=== PATIENT | female | born 2000 | race Caucasian/White ===

== ENCOUNTER 2019-08-26 10:12 | Emergency (ER) | payer MEDICAID, OTHER ==
[~2019-08-26] VITALS: Ht 175.3 cm; Wt 84.1 kg
[~2019-08-26 10:12] MED LIST: NOCURR
[2019-08-26] MEDS ORDERED: [UNRECOGNIZED DRUG - OTHER] PO (10:19)
[2019-08-26 12:00] VITALS: BP 119/70
[2019-08-26] MEDS ORDERED: LEVO5TAB29 PO (12:21)
[2019-08-26] MEDS ORDERED: LIDOCAINE 1%/EPI 1:200,000/PF 10 ML VIAL INJ ONE (12:30)
== END 2019-08-26 12:35 | disposition home or self-care (01) ==
LOC: EMS 10:16
DX: L30.9 Dermatitis, unspecified (principal)

== ENCOUNTER 2024-09-27 11:36 | Emergency (ER) | payer SELFPAY ==
[~2024-09-27] VITALS: Ht 175.3 cm; Wt 95.5 kg
[~2024-09-27 11:36] MED LIST changes: +LEVO5TAB29 PO; -NOCURR
[2024-09-27] MEDS ORDERED: HYDR-3831 PO (11:40)
[2024-09-27 11:43] VITALS: TEMP 97.7
[2024-09-27 12:27] LABS: BASOPHILS % (AUTO) 0.6 % (0.0-2.0); EOSINOPHILS % (AUTO) 0.9 % (1.0-6.0); HEMATOCRIT 43.2 % (36-46); HEMOGLOBIN 14.1 g/dL (12.0-16.0); LYMPHOCYTES # (AUTO) 1.1 K/uL (1.0-4.8); LYMPHOCYTES % (AUTO) 18.4 % (22.0-44.0); MEAN CORPUSCULAR HGB CONC 32.7 G/dL (31.0-37.0); MEAN CORPUSCULAR VOLUME 86 fL (80-100); MONOCYTES # (AUTO) 0.3 K/uL (0.1-1.0); MONOCYTES % (AUTO) 5.3 % (2.0-9.0); NEUTROPHILS # (AUTO) 4.6 K/uL (1.8-7.7); NEUTROPHILS % (AUTO) 74.8 % (40.0-70.0); PLATELET COUNT (AUTO) 249 K/uL (150-450); RED BLOOD CELL COUNT(AUTO) 5.03 MIL/uL (4.00-5.20); RED CELL DISTRIBUTION WIDTH 14.4 % (11.5-14.5); WHITE BLOOD COUNT (AUTO) 6.2 K/uL (4.5-11.0)
[2024-09-27 12:38] LABS: ANION GAP 11 mmol/L (8-16); CARBON DIOXIDE 26 mmol/L (22-29); CHLORIDE 103 mmol/L (98-107); CREATININE 0.79 mg/dL (0.60-1.30); GLOMERULAR FILTR. RATE CALC > 60 mL/min (>60); GLUCOSE,RANDOM 95 mg/dL (70-110); POTASSIUM 4.1 mmol/L (3.5-5.1); SODIUM SERUM 140 mmol/L (136-145); UREA NITROGEN, BLOOD 7 mg/dL (7-18)
[2024-09-27 12:43] LABS: APPEARANCE,URINE CLEAR (CLEAR); BILIRUBIN,URINE NEGATIVE (NEGATIVE); COLOR,URINE YELLOW (YELLOW); GLUCOSE, URINE (UA) NEGATIVE (NEGATIVE); KETONES,URINE NEGATIVE (NEGATIVE); LEUKOCYTE ESTERASE ,URINE NEGATIVE (NEGATIVE); NITRATE,URINE NEGATIVE (NEGATIVE); OCCULT BLOOD,URINE NEGATIVE (NEGATIVE); PROTEIN,URINE NEGATIVE (NEGATIVE); SPECIFIC GRAVITIY, URINE 1.019 (1.003-1.030); UROBILINOGEN,URINE <=1.0 mg/dL (<=1.0)
[2024-09-27 12:44] LABS: ALANINE AMINOTRANSFERASE 17 U/L (12-78); ALBUMIN 3.7 g/dL (3.4-5.0); ALKALINE PHOSPHATASE 102 U/L (46-116); ASPARTATE AMINOTRANSFERASE 15 U/L (15-37); BILIRUBIN,TOTAL 0.4 mg/dL (0.1-1.0); LIPASE 43 U/L (16-77); TOTAL PROTEIN, SERUM 7.8 g/dL (6.4-8.2)
[2024-09-27 14:05] VITALS: BP 141/93; PULSE 76; RESP 16; O2SAT 100
== END 2024-09-27 14:07 | disposition home or self-care (01) ==
LOC: EMS 11:38
DX: K59.00 Constipation, unspecified (principal)
CPT/HCPCS: 80048; 80076; 81003; 83690; 84703; 85025; 99283